=== PATIENT | male | born 1940 | race Caucasian/White ===

== ENCOUNTER → 2017-02-17 | Outpatient (CLI) | payer MEDICARE ==
[~2017-02-17] MED LIST: HYDROCODON-ACE1 EAC9 PO; LEVOTHROID125 MCG PO; PRAVASTATIN SOD20 MG PO; SYNTHROID125 PO; VITAMIN B12; VITAMIN B12-FO1 EACH PO; VITAMIN D3 PO; VITAMIN D31000 UNI1 PO
--- NOTE | ~2017-02-17 | CT2 ---
[facility] A Service [facility] RADIOLOGY TEXT RESULTS PATIENT: DAVI GUIDO LOCATION: [facility] : 44 UNIT #: [id number] AGE: [address]: Rhys Rocha MD SEX: M ORDER DR: [id number] [facility]. [place], [place] [address] [id number] O MR#: [id number] #: [id number] NAME: DAVI GUIDO : 1940 SEX: M STUDY DATE/TIME: 02/17/2017 13:53 UNIT: [facility] ROOM: STUDY DESCRIPTION: CT Abd and Pelv W Cont Attending Physician: Rhys Rocha M.D. Referring Physician: Rhys Rocha M.D. Ordering Physician: Rhys Rocha M.D. Primary Care Physician: Kingston Alanis M.D. MEDICAL IMAGING REPORT This report is preliminary unless electronic signature is present EXAM CT abdomen and pelvis with contrast INDICATIONS Colon cancer. Restaging. Observation for metastatic disease. PROCEDURE Contrast-enhanced CT of the abdomen and pelvis. 100 mL of Isovue-370. TECHNIQUE This CT exam was performed with one or more of the following radiation dose reduction techniques: automatic exposure control, adjustment of mA and/or kV according to patient size, and iterative reconstruction. COMPARISON 06/17/2016 FINDINGS Abdomen with contrast: Calcified pleural-based plaques again noted in the lung bases. Elevated left hemidiaphragm. Tiny cyst left hepatic lobe is stable. Spleen kidneys and adrenal gland, pancreas and gallbladder unremarkable. Postsurgical change in the rectum. Scattered uncomplicated sigmoid diverticula. Redemonstration of nonspecific somewhat prominent small bowel loops in the left side of the abdomen. These loops measure up to 4 cm, previously 4.4 cm. No abdominal adenopathy. Pelvis with contrast. No pelvic mass or adenopathy. No aggressive appearing bone lesion. IMPRESSION [facility] A Service [facility] RADIOLOGY TEXT RESULTS PATIENT: DAVI GUIDO LOCATION: [facility] : 44 UNIT #: [id number] AGE: [address]: Rhys Rocha MD SEX: M ORDER DR: 1. No convincing evidence for metastatic disease in the abdomen or pelvis. 2. No significant interval change from 06/17/2016. Dictated by... Dale Stubbs M.D. THIS IS AN ELECTRONICALLY VERIFIED REPORT Dale Stubbs M.D. at 02/18/2017 10:02 AM NARCISO/norm TD: 02/17/2017 21:42 JOB #: [id number] MEDICAL IMAGING REPORT Page 1 of 1 COPY
[2017-02-17 13:21] LABS: POC - CREATININE 1.14 mg/dL (0.64-1.27); POC - GFR >60.0 mL/min (>60)
== END | disposition home or self-care (01) ==
LOC: CCAT 12:24
PROVIDERS: Radiology Radiation Oncology
DX: C18.9 Malignant neoplasm of colon, unspecified (principal)
CPT/HCPCS: 74177; 82565; Q9967